=== PATIENT | female | born 1960 | race Caucasian/White ===

== ENCOUNTER 2021-05-20 16:43 | Emergency (ER) | payer OTHER, SELFPAY ==
[2021-05-20 17:10] VITALS: BP 143/88; PULSE 64; RESP 18; TEMP 37; O2SAT 98; BMI 27.5
--- NOTE | 2021-05-20 17:36 | HMH.EDUTC ---
[facility] [place] Impression: Bronchitis Disposition: Home, Self-Care Condition on Discharge: Good Instructions: Acute Bronchitis Additional Instructions: ? Start antibiotic today. Be sure to complete entire prescription even if feeling better ? Monitor temp. Tylenol every 4 hours as needed and / or ibuprofen every 6 hours as needed ( As long as your primary care physician has told you that it ok to take both. For fever/aches/pains ER if no less than 101 despite Tylenol or Motrin ? Humidifier/vaporizer or hot steamy shower *Tessalon Perles will not cause drowsiness but use at bedtime to help stop cough so that you may get some rest. Follow up IMMEDIATELY for new or worsening of symptoms OR no noticeable improvement over the next 48-72 hours. 911 immediately for any life threatening symptoms such as chest pain or difficulty breathing Prescriptions: Azithromycin [Z-Mohit 250mg Tab] 250 mg PO DIRECTED #6 tab Transmission Status: Received by [id number] Referrals: Kezia Dutta [Primary Care Provider] - As needed Time of Disposition: 17:54 Medical Decision Making - Josue Inquiry Pt receiving controlled substance: No Josue was queried for this patient: No Vital Signs: 05/20/21 17:10 05/20/21 17:45 Temperature 98.6 F 98.6 F Temperature Source Oral Pulse Rate 64 Pulse Rate [Right Brachial] 64 Respiratory Rate 18 18 Blood Pressure 143/88 H Blood Pressure [Right Arm] 143/88 H Blood Pressure Mean [Right Arm] 106 Blood Pressure Source [Right Arm] Automatic Cuff Blood Pressure Position [Right Arm] Sitting 02 Sat by Pulse Oximetry 98 Oxygen Delivery Method Room Air Orders (Tests/Meds): ED MEDICATIONS Discontinued Medications Generic Name Dose Route Start Last Admin Trade Name Freq PRN Reason Stop Dose Admin Methylprednisolone Sodium Succinate 62.5 mg 05/20/21 17:52 05/20/21 18:00 Methylprednisolone Sod Succ 125mg Vial IM 05/20/21 17:53 62.5 mg ONCE ONE Administration Medical Decision Narrative: Patient states that she has taken azithromycin and solu medrol in the past without complications or reactions [facility] [place] - General Stated complaint: sore throat,Cough,congestion Time Seen by Provider: 05/20/21 17:36 Mode of Arrival: Ambulatory Source of Information: Patient Limitations: No Limitations Description of Symptoms (Recalled from Triage Doc. by RN): PATIENT C/O COUGH, WEAKNESS, DECREASED APPETITE, AND TROUBLE BREATHING. REPORTS SHE WAS TREATED FOR BRONCHITIS ON 05/06 BUT IS NOT BETTER HEENT Symptoms (Recalled from RN notes): No Resp Symptoms (Recalled from RN notes): Yes Skin Symptoms (Recalled from RN notes): No MS Symptoms (Recalled from RN notes): No Functional Status (Recalled from RN notes): WNL - History of Present Illness Provider Complaint: Patient state that she was dx with bronchitis on 05/06 and did not finish all her medication like she was suppose to States that she has continued to have cough, sore scratchy throat and decreased appetite States that at times she is coughing so much she feels a little short or air - Related Data Home Medications Medication Instructions Recorded Confirmed Amlodipine Besylate [Amlodipine 10 mg PO DAILY 05/20/21 05/20/21 10mg Tab] Fluoxetine HCl 20 mg PO DAILY 05/20/21 05/20/21 Metoprolol Succinate [Metoprolol 25 mg PO DAILY 05/20/21 05/20/21 Succinate 25mg Tablet*] Pantoprazole Sodium 40 mg PO HS 05/20/21 05/20/21 Previous Rx's Medication Instructions Recorded Azithromycin [Z-Mohit 250mg Tab] 250 mg PO DIRECTED #6 tab 05/20/21 Allergies Allergy/AdvReac Type Severity Reaction Status Date / Time No Known Allergies Allergy Verified 05/20/21 17:29 - Worker's Comp Is this a Worker's Comp case?: No H History - Hepatitis A Screen Drug use history?: No High risk sexual behaviors?: No History of sexually transmitted infection?: No 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
[2021-05-20 17:45] VITALS: BP 143/88; PULSE 64; RESP 18; TEMP 37; O2SAT 98
== END 2021-05-20 18:34 | disposition home or self-care (01) ==
PROVIDERS: Emergency Provider Nurse Practitioner; PCP Family Medicine
DX: J20.9 Acute bronchitis, unspecified (principal)
CPT/HCPCS: 96372; 99202; G0463